=== PATIENT | male | born 1945 | race Caucasian/White ===

== ENCOUNTER → 2017-01-23 | Outpatient (CLI) | payer BC ==
[2017-01-23 12:25] LABS: BASO % 0.7 %; BASO ABS # 0.04 K/uL (0-0.2); COMPLETE YES; HEMATOCRIT 44.1 % (42-52); IG% 0.2 %; LYMPH % 34.5 %; LYMPH ABS # 1.94 K/uL (1.2-3.4); MEAN CELL VOLUME 90.7 fL (80-100); MEAN CORPUSCULAR HEMOGLOBIN 30.2 pg (25-34); MEAN CORPUSCULAR HGB CONC 33.3 g/dl (32-36); MEAN PLATELET VOLUME 10.6 fL (7.4-10.4); MONO % 7.1 %; NEUT % 54.5 %; PLATELET COUNT 213 K/uL (130-400); RED BLOOD COUNT 4.86 M/uL (4.7-6.1); WHITE BLOOD COUNT 5.62 K/uL (4.8-10.8)
[2017-01-23 13:17] LABS: ALT/SGPT 26 U/L (12-78); AST/SGOT 13 U/L (15-37); BLOOD UREA NITROGEN 10 mg/dl (7-18); BUN/CREATININE RATIO 13.1 (10-20); CALCIUM 8.7 mg/dl (8.5-10.1); CARBON DIOXIDE 27 mmol/L (21-32); CHLORIDE 108 mmol/L (98-107); CREATININE 0.76 mg/dl (0.60-1.40); GLUCOSE 94 mg/dl (70-99); POTASSIUM 4.4 mmol/L (3.5-5.1); SODIUM 140 mmol/L (136-145)
[2017-01-23 13:29] LABS: ALKALINE PHOSPHATASE 82 U/L (45-117); CHOLESTEROL 237 mg/dl (0-200); HDL CHOLESTEROL 60 mg/dl; LDL CHOLESTEROL CALCULATED 149 mg/dl; TRIGLYCERIDES 142 mg/dl (0-150); VERY LOW DENSITY LIPOPROT CALC 28 mg/dl
== END | disposition home or self-care (01) ==
LOC: C.LAB1850 10:14
PROVIDERS: ATTEND Internal Medicine
DX: Z00.00 Encounter for general adult medical examination without abnormal findings (principal); K21.9 Gastro-esophageal reflux disease without esophagitis; E78.5 Hyperlipidemia, unspecified; G43.909 Migraine, unspecified, not intractable, without status migrainosus; E55.9 Vitamin D deficiency, unspecified

== ENCOUNTER → 2017-05-15 | Outpatient (CLI) | payer BC | END | disposition home or self-care (01) | LOC: C.PATHSPEC 18:47 | PROVIDERS: ATTEND Surgery | DX: L72.0 Epidermal cyst (principal); C50.919 Malignant neoplasm of unspecified site of unspecified female breast ==

== ENCOUNTER → 2017-06-09 | Outpatient (CLI) | payer BC ==
--- NOTE | 2017-06-09 12:22 | DIAGNOSTIC IMAGING REPORT ---
PET/CT SKULL-THIGH HISTORY: Breast cancer BREAST CANCER TECHNIQUE: PET/CT was performed from the base of the skull through the pelvis following the intravenous administration of 14.16 mCi of F18-FDG. Non-contrast CT imaging was performed over the same range without breath-hold for attenuation correction of PET images and anatomic correlation, but not for primary interpretation as it is not of standard diagnostic quality. CT DOSE: COMPARISON: None. FINDINGS: HEAD AND NECK: There is no FDG-avid disease or significant lymphadenopathy in the imaged portions of the head and the neck. CHEST: Prior bilateral mastectomies. Several parenchymal nodules in the mid to lower lung regions measuring up to 5 mm. These showed no increase in metabolic activity but are too small to register. No metabolically active mediastinal or hilar adenopathy. No abnormal activity characteristics of the anterior chest wall. ABDOMEN/PELVIS: Below the diaphragm, tracer is distributed physiologically in the gastrointestinal and genitourinary tracts. There is no significant lymphadenopathy and no FDG-avid disease. MUSCULOSKELETAL: Solitary focus of increased metabolic activity left anterior sacrum best seen on image 191. Increased SUV activity to 4.5. Faint sclerosis at this site on the fused CT exam. No additional foci of increased metabolic activity involving the musculoskeletal system. IMPRESSION: 1. Solitary bone metastatic focus anterior inferior sacrum 2. Nodularity in the mid to lower lung regions bilaterally which should be closely followed on follow-up exams. These are too small to register on the current PET scan and is therefore indeterminate. 3. Study is otherwise negative post bilateral mastectomies. 4. No abnormal skin or chest wall activity on this study. The above report was generated using voice recognition software. It may contain grammatical, syntax or spelling errors. Electronically signed by: Carloz Bearden M.D. 06/09/2017 12:21 PM Dictated Date/Time: 06/09/2017 12:08 PM
== END | disposition home or self-care (01) ==
LOC: C.PET 08:51
PROVIDERS: ATTEND Surgery
DX: C50.919 Malignant neoplasm of unspecified site of unspecified female breast (principal)

== ENCOUNTER → 2017-07-02 | Outpatient (CLI) | payer BC ==
[~2017-07-02] MED LIST: ATV/1 PO; ESCI1TAB10 PO
== END | disposition home or self-care (01) ==
LOC: C.CPL 11:41
PROVIDERS: ATTEND Surgery
DX: C50.919 Malignant neoplasm of unspecified site of unspecified female breast (principal)

== ENCOUNTER → 2017-07-08 | Day surgery (SDC) | payer BC ==
[2017-07-04 11:08] VITALS: Ht 157.5 cm; Wt 66.8 kg
[~2017-07-08] VITALS: Ht 157.5 cm; Wt 66.8 kg
[~2017-07-08] MED LIST changes: +BUPIVACAINE 0.5 % 5 MG/1 ML MPF 30ML VIAL ONE; +CEFAZOLIN 2000MG IV PUSH 15 ML IV SCH; +DEXAMETHASONE SOD INJ 4 MG/ML VIAL ONE; +FENTANYL CITRATE INJ 50 MCG/1 ML 2 ML VIAL ONE; +LACTATED RINGER'S 1000ML 1,000 ML IV SCH; +LIDOCAINE HCL 2% 2 ML VIAL (20MG/ML) ONE; +LIDOCAINE/EPINEPHRINE 1% 20 ML VIAL ONE; +MIDAZOLAM HCL 1 MG/ML 2ML VIAL ONE; +ONDANSETRON INJ 2 MG/ML 2 ML VIAL IV PRN; +ONDANSETRON INJ 2 MG/ML 2 ML VIAL ONE; +PROPOFOL IV EMULSION 10 MG/ML 20 ML VIAL IV ONE; +SODIUM CHLORIDE 0.9% 1000ML 1,000 ML IV SCH
--- NOTE | 2017-07-08 09:35 | History & Physical Bridge - SC ---
H&P Re-Evaluation Bridge Note: I have examined the patient, reviewed the History & Physical and in the interval since the performance of the History & Physical I have noted the following changes of clinical significance: No changes noted
--- NOTE | 2017-07-08 10:38 | [facility] Post Operative Brief Note ---
Immediate Operative Summary Operative Date Jul 08, 2017. Pre-Operative Diagnosis Metastatic Breast Cancer Post-Operative Diagnosis same Procedure(s) Performed Right Chest Wide Local Excision Surgeon Dr. Jl Linda Lathing Supervisor Surgeon(s) Serenity Zee PA-C Estimated Blood Loss 3CC Findings Consistent with Post-Op Diagnosis 3 x 9 cm elliptical wide local excision Specimens A.Right Chest Wide Local Excision --short suture=superior, long suture=lateral Drains None Anesthesia Type MAC Complication(s) none Disposition Accompanied Pt To Recovery: no Disposition: Recovery Room / PACU
[2017-07-08 10:42] VITALS: TEMP 37.4
--- NOTE | 2017-07-08 10:44 | [facility] Operative Report ---
Operative Report Operative Date Jul 08, 2017. Pre-Operative Diagnosis Metastatic Breast Cancer Post-Operative Diagnosis same Procedure(s) Performed Right Chest Wide Local Excision Surgeon Dr. Jl Linda Supervisor [employer] Surgeon(s) Serenity Zee PA-C Estimated Blood Loss 3CC Findings 3 x 9 cm elliptical wide local excision Specimens A.Right Chest Wide Local Excision --short suture=superior, long suture=lateral Drains None Anesthesia Type MAC Complication(s) none Disposition no Recovery Room / PACU Indications 72-year-old female with history of bilateral breast cancers, prior mastectomy on the right side, presented to the clinic with right chest skin lesion, incisional biopsy confirmed breast cancer. Plan for right chest wide local excision. The risks of the procedure were discussed, all questions were answered, and the patient agreed to proceed with surgery as planned. Description of Procedure The patient was properly identified, consented, and taken to the operating room where she was placed in the supine position. Monitored anesthesia care was induced. SCDs and a safety belt were placed. Preoperative antibiotics were administered. The patient's right chest was prepped and draped in the standard sterile fashion. Surgical timeout was performed and all parties were in agreement that this was the correct patient and procedure to be performed and we continued as planned. Local anesthetic was injected along the skin incision. A 3 cm x 9 cm elliptical incision was made in order to obtain adequate margins. This was in a generally transverse direction and did crossover a portion of her prior mastectomy scar. The incision was deepened down through the subcutaneous tissue with electrocautery, and underlying the metastatic deposit in the skin the dissection was taken down to the chest wall. The metastatic skin lesion was excised, and passed off the table as specimen. The specimen was oriented. Skin the tissue was undermined inferiorly and superiorly to take some tension off the incision. The wound was irrigated and hemostasis was confirmed. The skin was closed with interrupted 3-0 Vicryl deep dermal sutures, followed by 4- 0 nylon interrupted simple sutures, with 2 interrupted horizontal mattress sutures at the midpoint of the incision at the point of greatest tension. A sterile dressing was placed over the wound. The patient was extubated in the operating room and taken to the PACU where she recovered without apparent incident. All sponge, instrument and needle counts were correct at the conclusion of the procedure. The patient tolerated the procedure well. The physician's preschool assistant teacher was present and scrubbed for the entire to the procedure. She was critical in positioning the patient, prepping and draping, retraction and exposure, removal of the mass, closure of the incision, and placement of the dressing. I attest to the content of the Intraoperative Record and any orders documented therein. Any exceptions are noted below.
--- NOTE | 2017-07-08 10:48 | Discharge Instructions-SurgCtr ---
Discharge Instructions Date of Service Jul 08, 2017. Visit Reason for Visit: Metastatic Breast Ca Discharge Discharge Diagnosis / Problem: Metastatic Breast CA Discharge Goals Goal(s): Decrease discomfort, Improve function Activity Recommendations Activity Limitations: as noted below Lifting Limitations: no more than 10 pounds Exercise/Sports Limitations: until after follow-up appointment May Resume Sexual Activity: after follow-up appointment Shower/Bathe: tomorrow Driving or Machine Use: resume 1 day after discharge Anesthesia . Post Anesthesia Instructions: If you have had General Anesthesia or IV Sedation: * Do not drive today. * Resume driving when surgeon permits. * Do not make important decisions or sign legal documents today. * Call surgeon for: 1. Temperature elevations greater than 101 degrees F. 2. Uncontrollable pain. 3. Excessive bleeding. 4. Persistent nausea and vomiting. 5. Medication intolerance (nausea, vomiting or rash). * For nausea and vomiting use only clear liquids such as: tea, soda, bouillon until nausea subsides, then gradually increase diet as tolerated. * If you have any concerns or questions, call your surgeon's office. If physician is unavailable and it is an emergency, call 911 or go to the nearest emergency room. . Instructions / Follow-Up Instructions / Follow-Up You may remove your gauze dressing tomorrow morning, 07/09/2017. You can shower tomorrow, but please do not soak or scrub your incision. For pain control, you may use over the counter Tylenol. Please use as directed. You may take 2 tablets of regular strength Tylenol every 4-6 hrs for pain. Do not exceed more than 10 tablets in a 24 hr period. Please call the General Surgery Clinic at [phone] to make an appointment to have your sutures removed. Please call the General Surgery Clinic with any questions or concerns. Diet Recommendations Home Diet: no limitations Procedures Procedures Performed: Right Chest Wide Local Excision Pending Studies Studies pending at discharge: yes List of pending studies: Pathology report. Medical Emergencies . Who to Call and When: Medical Emergencies: If at any time you feel your situation is an emergency, please call 911 immediately. . Non-Emergent Contact Non-Emergency issues call your: Primary Care Provider, Surgeon Call Non-Emergent contact if: temperature is above 101.5, your pain is not controlled, wound has increased drainage, wound has increased redness . . "Provider Documentation" section prepared by Serenity Zee. .
--- NOTE | 2017-07-08 11:00 | Anesthesia Progress Nt - [facility] ---
Anesthesia Post Op Note Date & Time Jul 08, 2017 at 11:00 Vital Signs Pain Intensity: 0 Vital Signs Past 12 Hours Date Time Temp Pulse Resp B/P (MAP) Pulse Ox O2 Delivery O2 Flow Rate FiO2 07/08/17 10:42 37.4 83 16 146/70 (95) 97 Room Air 07/08/17 08:42 36.6 78 18 142/83 (102) 96 Room Air Notes Mental Status: alert / awake / arousable, participated in evaluation Pt Amnestic to Procedure: Yes Nausea / Vomiting: adequately controlled Pain: adequately controlled Airway Patency, RR, SpO2: stable & adequate BP & HR: stable & adequate Hydration State: stable & adequate Anesthetic Complications: no major complications apparent
[2017-07-08 11:10] VITALS: BP 148/71; PULSE 71; O2SAT 100
== END | disposition home or self-care (01) ==
LOC: X.SURG 08:29
PROVIDERS: ATTEND Surgery
DX: C79.2 Secondary malignant neoplasm of skin (principal); C50.919 Malignant neoplasm of unspecified site of unspecified female breast; L98.9 Disorder of the skin and subcutaneous tissue, unspecified; K21.9 Gastro-esophageal reflux disease without esophagitis; F41.9 Anxiety disorder, unspecified; F32.9 Major depressive disorder, single episode, unspecified; E78.5 Hyperlipidemia, unspecified; E55.9 Vitamin D deficiency, unspecified; Z92.21 Personal history of antineoplastic chemotherapy; Z95.3 Presence of xenogenic heart valve; Z81.8 Family history of other mental and behavioral disorders; Z83.79 Family history of other diseases of the digestive system; Z83.49 Family history of other endocrine, nutritional and metabolic diseases; Z80.0 Family history of malignant neoplasm of digestive organs; Z83.2 Family history of diseases of the blood and blood-forming organs and certain disorders involving the immune mechanism; Z82.49 Family history of ischemic heart disease and other diseases of the circulatory system; Z87.891 Personal history of nicotine dependence; Z79.899 Other long term (current) drug therapy; Z88.8 Allergy status to other drugs, medicaments and biological substances

== ENCOUNTER → 2017-10-23 | Outpatient (CLI) | payer BC ==
[~2017-10-23] MED LIST changes: -BUPIVACAINE 0.5 % 5 MG/1 ML MPF 30ML VIAL ONE; -CEFAZOLIN 2000MG IV PUSH 15 ML IV SCH; -DEXAMETHASONE SOD INJ 4 MG/ML VIAL ONE; -FENTANYL CITRATE INJ 50 MCG/1 ML 2 ML VIAL ONE; +FULV250I2 IM; -LACTATED RINGER'S 1000ML 1,000 ML IV SCH; -LIDOCAINE HCL 2% 2 ML VIAL (20MG/ML) ONE; -LIDOCAINE/EPINEPHRINE 1% 20 ML VIAL ONE; -MIDAZOLAM HCL 1 MG/ML 2ML VIAL ONE; -ONDANSETRON INJ 2 MG/ML 2 ML VIAL IV PRN; -ONDANSETRON INJ 2 MG/ML 2 ML VIAL ONE; -PROPOFOL IV EMULSION 10 MG/ML 20 ML VIAL IV ONE; -SODIUM CHLORIDE 0.9% 1000ML 1,000 ML IV SCH
[2017-10-23 13:36] VITALS: BP 158/84; PULSE 85; TEMP 37; O2SAT 95
--- NOTE | 2017-10-23 16:27 | Radiation Oncology Follow-Up ---
Radiation Oncology Follow-Up Date of Visit Oct 23, 2017. Reason For Visit One-month follow-up Radiation Completion Date 09/15/17 Diagnosis (1) Breast cancer metastasized to skin Status: Acute Permanent Comment: Ductal carcinoma of the right breast Status post right segmentectomy and axillary dissection September 16, 1988 Status post radiation therapy completed December 11, 1988 received 61 chirinos Right breast reoccurrence status post mastectomy in 1995 Chemotherapy with CMF 2.5 years of tamoxifen followed by 5 years of Arimidex Status post left breast mastectomy April 22, 2014 Lobular carcinoma Stage pT1c pN1a, 1 of 16 nodes positive Estrogen receptor positive and progesterone receptor positive Status post right chest wall recurrence May 15, 2017 Lobular carcinoma Estrogen receptor positive and progesterone receptor positive Status post biopsy and then excision Status post completion of radiation therapy September 15, 2017. She received 5000 cGy. Last Edited By: Yoli Huizar on Sep 26, 2017 15:33 History of Present Illness Ms. Sanchez has a previous history of bilateral breast cancer. 10/22/1988 to 12/11/1988 --- radiation therapy for treatment of right breast cancer in [place] by Dr. Parnell --- total dose of 61 chirinos. No radiation records available otherwise. 1995 --- recurrence in right breast --- treated with total mastectomy followed by CMF chemotherapy followed by tamoxifen and Arimidex (as per outside medical records) 03/2014 to 05/2014 --- left breast invasive lobular carcinoma, ER positive, UT positive --- treated with right modified radical mastectomy which revealed one positive axillary lymph node at the time of surgery. Patient continued on aromatase inhibitor and Femara. 05/2017 --- patient started to notice a lesion involving the right chest wall that was growing in size which was not painful or tender to palpation. Patient was evaluated by Dr. Mosqueda who recommended a biopsy of the lesion. Patient referred to Dr. Linda. 05/15/2017 --- skin, right chest wall, biopsy --- metastatic carcinoma consistent with metastatic lobular carcinoma of the breast. Tumor cells are positive for estrogen receptor. Tumor cells are positive for progesterone receptor. HER-2 receptor status pending. 06/09/2017 --- PET/CT --- IMPRESSION: 1. Solitary bone metastatic focus anterior inferior sacrum 2. Nodularity in the mid to lower lung regions bilaterally which should be closely followed on follow-up exams. These are too small to register on the current PET scan and is therefore indeterminate. 3. Study is otherwise negative post bilateral mastectomies. 4. No abnormal skin or chest wall activity on this study. 06/10/2017 --- medical oncology consultation with Dr. Roberto Russo --- Dr. Russo recommended treatment with hormonal therapy or chemotherapy based on HER-[address] Russo also recommended consideration of radiation therapy to the sacral lesion and chest wall following surgical resection. The patient is tentatively scheduled to undergo surgical resection by Dr. Linda in June 2017. We are now seeing the patient in consultation discuss role of radiation therapy. Currently, the patient has no complaints of pain. She has no other complaints. 07/09/2017---status post excision of the chest wall recurrence. She had positive medial margins. 09/15/2017---status post completion of radiation therapy. She received 5000 cGy. Interim History Following the completion of her treatment she had skin irritation for 1-2 weeks. This steadily improved and resolved. There was associated discomfort. This is now resolved. She is noted no masses or tenderness and no axillary adenopathy. She stated that there was a small cyst in the inner chest wall that opened and drained. This is now resolving. She does have lymphedema of her arm. This is been present since her initial surgery and radiation which was in 1988. We had previously discussed possible referral to lymphedema therapy to see if they could help with the edema of the arm. Allergies Coded Allergies: Flu Virus Vaccine (Verified Allergy, Severe, nausea vomiting severe, ) Adhesives (Verified Allergy, Intermediate, skin reaction, 10/23/17) Aspirin (Verified Allergy, Intermediate, hives, 10/23/17) Oxycodone (Verified Allergy, Intermediate, hives, 10/23/17) Propoxyphene (Verified Allergy, Intermediate, hives, 10/23/17) Tamoxifen (Verified Allergy, Unknown, BONE PAIN/DEPRESSION, 10/23/17) Meperidine (Verified Adverse Reaction, Mild, NAUSEA, 10/23/17) Home Medications Scheduled Escitalopram Oxalate (Lexapro), 40 MG PO QAM Fulvestrant (Faslodex), 1 APPLN IM MONTHLY Lorazepam (Ativan), 1.5 TAB PO HS Review of Systems Gastrointestinal: Symptoms: WNL Oral: Symptoms: No Problems Respiratory: Symptoms: WNL Urinary: Symptoms: WNL Skin: Symptoms: No Problems Breast: Right Upper Arm Measurement: 30.2 Right Mid Arm Measurement: 29.0 Right Wrist Measurement: 17.0 Left Upper Arm Measurement: 30.5 Left Mid Arm Measurement: 24.3 Left Wrist Measurement: 15.9 Arm Dominence: Right Patient Cosmetic Evaluation: Good Physical Exam Vital Signs Date Time Temp Pulse Resp B/P (MAP) Pulse Ox O2 Delivery O2 Flow Rate FiO2 10/23/17 13:36 37.0 85 16 158/84 95 Fatigue: None General Appearance: no apparent distress Eyes: normal inspection, EOMI ENT: normal ENT inspection, hearing grossly normal Neck: no adenopathy, thyroid normal Respiratory/Chest: lungs clear, no respiratory distress, no accessory muscle use Breast: Examination of the chest wall reveals status post mastectomy on the right. There is resolving radiation dermatitis. There are no areas of wet or dry desquamation. There is no tenderness and no axillary adenopathy. She does have a small cystic lesion in the lower central portion of the chest wall. This is approximately 1 cm in diameter. This has a healing central area which appears to be where it had spontaneously drained. The left chest wall showed no masses or tenderness and no axillary adenopathy. Cardiovascular: regular rate, rhythm, no gallop, no murmur Extremities: no pedal edema Neurologic/Psychiatric: no motor/sensory deficits, alert, normal mood/affect Skin: warm/dry Pain Management Patient Reports Pain: No Initial Pain Intensity: 0.0 Pain Management Plan She denies pain therefore requires no pain management. Laboratory Laboratory Results: not applicable Pathology Pathology Results: were reviewed, and pertinent findings noted in HPI Imaging Imaging Studies: not applicable Assessment & Plan Plan: The patient was seen and examined by Dr. Del Real. She may continue to use Aquaphor for any dryness of the skin or itching. For the chronic lymphedema we will refer her to the lymphedema therapy clinic for evaluation and treatment. She will continue follow-up with medical oncology. We asked her to return to our office in 6 months. She may call if she has any questions or concerns in the interim. Assessment & Plan (Attending) I agree with note created by Yoli Huizar PA-C. I reviewed the patient's chart and information with her. I have examined and evaluated the patient. I reviewed relevant clinical information and answered the patient's and/or family' s questions. [employer]ASIVE WORKER Total Time In Follow-Up I spent 20 minutes speaking to the patient in performing examination. I spent 15 minutes reviewing information and completing this note. [place] Total Time (Attending) In Follow-Up I spent 15 minutes examining and counseling the patient. ABRASIVE WORKER Copy To Timothy Linda DO; Alvin Mari M.D.; Roberto Russo D.O. Problem Qualifiers (1) Breast cancer metastasized to skin: Laterality: right Qualified Codes: C50.911 - Malignant neoplasm of unspecified site of right female breast; C79.2 - Secondary malignant neoplasm of skin
== END | disposition home or self-care (01) ==
LOC: C.ONC 13:32
PROVIDERS: ATTEND Physician Assistant Medical
DX: Z08 Encounter for follow-up examination after completed treatment for malignant neoplasm (principal); Z92.3 Personal history of irradiation; Z85.3 Personal history of malignant neoplasm of breast; Z85.828 Personal history of other malignant neoplasm of skin